=== PATIENT | male | born 1985 | race Caucasian/White ===

== ENCOUNTER 2018-06-11 04:04 | Emergency (ER) | payer OTHER ==
[~2018-06-11] VITALS: Ht 160 cm; Wt 81.6 kg
[2018-06-11] MEDS ORDERED: KETO10TA2 PO (06:04)
[2018-06-11] MEDS ORDERED: CEFADROXIL500 MG PO (06:04)
== END 2018-06-11 13:51 | disposition home or self-care (01) ==
LOC: ER 04:04
DX: S01.521A Laceration with foreign body of lip, initial encounter (principal); W18.09XA Striking against other object with subsequent fall, initial encounter; Y93.89 Activity, other specified; Y92.89 Other specified places as the place of occurrence of the external cause; Y99.8 Other external cause status